=== PATIENT | female | born 1950 | race Caucasian/White ===

== ENCOUNTER 2016-12-06 00:26 | Emergency (ER) | payer OTHER ==
[~2016-12-06] VITALS: Ht 149.9 cm; Wt 97.6 kg
[~2016-12-06 00:26] MED LIST: FLEXERIL10 MG PO; FLONASE16 G1 BOTH NARES; GUAIFENESIN600 M1 PO; LYRICA100 MG PO; NAPROSYN500 MG PO; PAIN RELIEVER500 MG PO; PERCOCET 5/31 TABLET PO
[2016-12-06 01:08] LABS: BASOPHIL COUNT 0.1 K/uL (0-0.1); EOSINOPHIL (%) 3.6 % (0-5); EOSINOPHIL COUNT 0.3 K/uL (0-0.3); HEMATOCRIT 38.4 % (36.0-46.0); IMMATURE GRANULOCYTE (%) 0.7 % (0.0-0.7); IMMATURE GRANULOCYTE COUNT 0.1 K/uL; INSTRUMENT ABS NEUTROPHIL CT 5.6 K/uL; LYMPHOCYTE COUNT 2.3 K/uL (1.0-2.8); MCHC 33.3 G/DL (30.0-36.0); MEAN PLAT.VOLUME 11.2 uM^3 (9.5-12.4); MONOCYTE (%) 7.3 % (3-12); MONOCYTE COUNT 0.7 K/uL (0-0.8); NEUTROPHIL (%) 61.9 % (45-76); NEUTROPHIL COUNT 5.6 K/uL (1.8-6.4); PLATELET COUNT 250 K/uL (156-360); RBC DIS.WIDTH-CV 13.6 % (11.8-14.6); RBC DIS.WIDTH-SD 46.2 % (39-53); RED BLOOD COUNT 4.13 M/uL (3.80-5.20); WHITE BLOOD COUNT 9.1 K/uL (4.1-10.2)
[2016-12-06 01:18] LABS: PROTHROMBIN TIME 10.5 (9.2-11.2); PTT 28.4 (25-32)
[2016-12-06 01:20] LABS: CHLORIDE 110 mEq/L (99-109); POTASSIUM 3.4 mEq/L (3.7-5.4); SODIUM 139 mEq/L (136-147)
[2016-12-06 01:23] LABS: GLUCOSE 105 mg/dL (70-99)
[2016-12-06 01:24] LABS: ANION GAP 8 MEQ/L (2-14)
[2016-12-06 01:25] LABS: TOTAL BILIRUBIN 0.5 mg/dL (0.0-1.0)
[2016-12-06 01:26] LABS: ALKALINE PHOSPHATASE 101 IU/L (3-129)
[2016-12-06 01:27] LABS: GFR ESTIMATE (CALCULATED) > 59 mL/min/
[2016-12-06 01:28] LABS: DIRECT BILIRUBIN 0.2 mg/dL (0.0-0.3); UREA NITROGEN (BUN) 20 mg/dL (9-23)
[2016-12-06 01:30] LABS: LIPASE 7 U/L (1.0-51.0)
[2016-12-06 01:31] LABS: TROP-I INTERPRETATION NEGATIVE; TROPONIN-I < 0.01 ng/mL (0.0-0.30)
[2016-12-06] MEDS ORDERED: PEPCID20 MG PO (02:32)
[2016-12-06 02:59] VITALS: BP 146/85
== END 2016-12-06 03:09 | disposition home or self-care (01) ==
LOC: EME 00:26
PROVIDERS: Emergency Medicine
DX: K62.5 Hemorrhage of anus and rectum (principal); Z90.49 Acquired absence of other specified parts of digestive tract; Z87.891 Personal history of nicotine dependence
CPT/HCPCS: 71010; 74177; 80048; 80076; 83605; 83690; 84484; 85025; 85610; 85730; 86900; 86901; 99281; 99285; C9113; J7030